=== PATIENT | male | born 1975 | race Caucasian/White ===

== ENCOUNTER 2017-07-10 10:32 | Emergency (ER) | payer BC ==
[~2017-07-10] VITALS: Ht 182.9 cm; Wt 79.4 kg
== END 2017-07-10 15:05 | disposition home or self-care (01) ==
LOC: ER 10:32
DX: S90.451A Superficial foreign body, right great toe, initial encounter (principal); Z48.02 Encounter for removal of sutures; W45.8XXA Other foreign body or object entering through skin, initial encounter; Y93.89 Activity, other specified; Y92.89 Other specified places as the place of occurrence of the external cause; Y99.8 Other external cause status

== ENCOUNTER 2019-08-28 10:19 | Emergency (ER) | payer OTHER ==
[~2019-08-28] VITALS: Ht 182.9 cm; Wt 86.2 kg
== END 2019-08-28 13:58 | disposition home or self-care (01) ==
LOC: ER 10:19
DX: S92.421A Displaced fracture of distal phalanx of right great toe, initial encounter for closed fracture (principal); W22.8XXA Striking against or struck by other objects, initial encounter; Y93.01 Activity, walking, marching and hiking; Y92.018 Other place in single-family (private) house as the place of occurrence of the external cause; Y99.8 Other external cause status